=== PATIENT | male | born 1995 | race Caucasian/White ===

== ENCOUNTER 2017-01-09 00:32 | Inpatient (IN) | payer MEDICAID ==
[~2017-01-09] VITALS: Ht 175.3 cm; Wt 86.7 kg
[2017-01-09 01:18] LABS: BASOPHIL % 0.1 % (0-2); PLATELET COUNT 182 x10^3mcL (130-400); RED CELL DISTRIBUTION WIDTH 12.6 % (11.5-14.5)
[2017-01-09 01:21] LABS: CALCIUM 9.3 mg/dL (8.5-10.1); CARBON DIOXIDE 19.8 mmol/L (21-32); CHLORIDE SERUM 106 mmol/L (98-107); CREATININE SERUM 1.2 mg/dL (0.7-1.3); GFR1 > 60 mL/min; GLUCOSE SERUM 155 mg/dL (74-106); POTASSIUM SERUM 3.6 mmol/L (3.5-5.1); SODIUM SERUM 142 mmol/L (136-145)
[2017-01-09 01:27] LABS: ALBUMIN 4.5 g/dL (3.4-5.0); ALKALINE PHOSPHATASE 77 U/L (46-116); ALT/SGPT 68 U/L (16-63); AST/SGOT 32 U/L (15-37); LIPASE 75 IU/L (73-393); TOTAL PROTEIN, SERUM 7.7 g/dL (6.4-8.2)
[2017-01-09 04:35] VITALS: BP 126/62
[2017-01-09 04:41] LABS: T3 TOTAL 1.37 ng/mL
[2017-01-09 04:43] LABS: CHOLESTEROL/HDL RATIO 3.2; MAGNESIUM 1.8 mg/dL (1.8-2.4); PHOSPHOROUS 1.9 mg/dL (2.5-4.9)
[2017-01-09 04:45] LABS: FREE T4 1.14 ng/dL (0.76-1.46); FREE THYROXINE INDEX 2.8 ug/dL (1.4-4.5); T4(THYROXINE) 7.9 ug/dL (4.7-13.3)
[2017-01-09 05:38] VITALS: BP 126/62
[2017-01-09 08:02] LABS: microscopic required? NO
[2017-01-09 08:12] LABS: urine erythrocyte NEGATIVE (NEGATIVE)
[2017-01-09 08:31] LABS: AMPHETAMINE QUAL UR NONE DETECTED (NEG <=1000)
[2017-01-09 09:16] VITALS: BP 128/64
[2017-01-09 14:30] VITALS: BP 114/48
[2017-01-09 21:54] VITALS: BP 124/56
[2017-01-10 06:20] VITALS: BP 104/42
[2017-01-10 06:20] LABS: BASOPHIL % 0.1 % (0-2); PLATELET COUNT 147 x10^3mcL (130-400); RED CELL DISTRIBUTION WIDTH 12.7 % (11.5-14.5)
[2017-01-10 06:39] LABS: CALCIUM 8.4 mg/dL (8.5-10.1); CARBON DIOXIDE 25.2 mmol/L (21-32); CHLORIDE SERUM 108 mmol/L (98-107); GFR1 > 60 mL/min; GLUCOSE SERUM 137 mg/dL (74-106); POTASSIUM SERUM 4.1 mmol/L (3.5-5.1); SODIUM SERUM 143 mmol/L (136-145)
[2017-01-10 13:32] VITALS: BP 113/52
[2017-01-10 18:00] VITALS: BP 120/54
[2017-01-10 21:01] VITALS: BP 105/55
[2017-01-11 05:16] VITALS: BP 119/57
[2017-01-11 06:15] LABS: BASOPHIL % 0.3 % (0-2); PLATELET COUNT 140 x10^3mcL (130-400); RED CELL DISTRIBUTION WIDTH 12.9 % (11.5-14.5)
[2017-01-11] MEDS ORDERED: NOR10T PO (06:25)
[2017-01-11] MEDS ORDERED: COLACE100 MG PO ×2 (06:27→09:38)
[2017-01-11 06:29] LABS: CALCIUM 8.5 mg/dL (8.5-10.1); CARBON DIOXIDE 27.3 mmol/L (21-32); CHLORIDE SERUM 109 mmol/L (98-107); GFR1 > 60 mL/min; GLUCOSE SERUM 110 mg/dL (74-106); MAGNESIUM 2.2 mg/dL (1.8-2.4); PHOSPHOROUS 3.6 mg/dL (2.5-4.9); SODIUM SERUM 144 mmol/L (136-145)
[2017-01-11 07:59] VITALS: BP 119/57
[2017-01-11 09:39] VITALS: BP 110/52
== END 2017-01-11 11:41 | disposition home or self-care (01) | DRG 225 ==
LOC: ED 00:32 → DU 03:39 → MU 03:39 → DU 04:13 → MU 16:53
PROVIDERS: Emergency Medicine; Surgery; ADMIT Family Medicine
PROC: 0DTJ4ZZ Resection of Appendix, Percutaneous Endoscopic Approach (ICD-10-PCS; principal; 2017-01-09 11:30)
DX: K35.80 Unspecified acute appendicitis (principal); N17.0 Acute kidney failure with tubular necrosis; E83.39 Other disorders of phosphorus metabolism; E78.5 Hyperlipidemia, unspecified; Z68.28 Body mass index [BMI] 28.0-28.9, adult
CPT/HCPCS: 83880; 84439; 94150; G0480; J0330; J0500; J1170; J2250; J2270; J2405; J2543; J2704; J2710; J3010; J3490; J7030; J7120; Q0092

== ENCOUNTER 2020-01-18 05:04 | Emergency (ER) | payer SELFPAY ==
[~2020-01-18] VITALS: Ht 177.8 cm; Wt 96.7 kg
[~2020-01-18 05:04] MED LIST: COLACE100 MG PO; NOR10T PO
[2020-01-18 05:10] VITALS: Ht 177.8 cm; Wt 96.7 kg
[2020-01-18 05:58] LABS: BASOPHIL % 0.2 % (0-2); PLATELET COUNT 185 x10^3mcL (130-400); RED CELL DISTRIBUTION WIDTH 12.6 % (11.5-14.5)
[2020-01-18 06:16] LABS: ALBUMIN 3.9 g/dL (3.4-5.0); ALKALINE PHOSPHATASE 61 U/L (46-116); ALT/SGPT 85 U/L (16-63); AST/SGOT 35 U/L (15-37); BILIRUBIN TOTAL 0.3 mg/dL (0.20-1.00); CALCIUM 8.2 mg/dL (8.5-10.1); CARBON DIOXIDE 25.8 mmol/L (21-32); CHLORIDE SERUM 105 mmol/L (98-107); CREATININE SERUM 1.1 mg/dL (0.7-1.3); GFR1 > 60 mL/min; GLUCOSE SERUM 116 mg/dL (74-106); LIPASE 75 IU/L (73-393); POTASSIUM SERUM 3.6 mmol/L (3.5-5.1); SODIUM SERUM 141 mmol/L (136-145); TOTAL PROTEIN, SERUM 6.8 g/dL (6.4-8.2)
[2020-01-18 07:11] VITALS: BP 114/64
== END 2020-01-18 07:11 | disposition home or self-care (01) ==
LOC: ED 05:04
PROVIDERS: Emergency Medicine
DX: K80.20 Calculus of gallbladder without cholecystitis without obstruction (principal); Z90.89 Acquired absence of other organs
CPT/HCPCS: J1885; J2405; Q0092

== ENCOUNTER 2020-06-23 23:16 | Emergency (ER) | payer SELFPAY ==
[~2020-06-23] VITALS: Ht 177.8 cm; Wt 90.7 kg
[2020-06-23 23:18] VITALS: Ht 177.8 cm; Wt 90.7 kg
[2020-06-24 00:55] VITALS: BP 155/88
== END 2020-06-24 00:56 | disposition home or self-care (01) ==
LOC: ED 23:16
DX: Z20.828 Contact with and (suspected) exposure to other viral communicable diseases (principal)
CPT/HCPCS: U0003